=== PATIENT | male | born 2000 | race Two or more races ===

== ENCOUNTER 2021-11-12 14:03 | Outpatient (CLI) | payer OTHER | END 2021-11-12 14:10 | disposition home or self-care (01) | LOC: RAD 14:03 | DX: M54.50 Low back pain, unspecified (principal); M62.830 Muscle spasm of back; M54.2 Cervicalgia ==

== ENCOUNTER 2021-11-29 11:25 | Outpatient (CLI) | payer OTHER | END 2021-11-29 11:33 | disposition home or self-care (01) | LOC: RAD 11:25 | PROVIDERS: ATTEND Family Medicine | DX: S62.336A Displaced fracture of neck of fifth metacarpal bone, right hand, initial encounter for closed fracture (principal) ==